=== PATIENT | male | born 1990 | race Hispanic/Latino ===

== ENCOUNTER 2023-11-13 00:47 | Inpatient (IN) | payer BC ==
[2023-11-13] MEDS ORDERED: Ondansetron ODT 4 MG TAB PO PRN (01:21)
[2023-11-13] MEDS ORDERED: Acetaminophen 650 MG Suppository PR PRN (01:21)
[2023-11-13] MEDS ORDERED: Ondansetron PF 4 MG/2 ML Vial IVP PRN (01:21)
[2023-11-13] MEDS: Sodium Chloride 0.9% 1,000 ML IV SCH (01:30)
[2023-11-13] MEDS ORDERED: Morphine 4 MG/ML VIAL SLOW IVP PRN (01:42)
[2023-11-13 01:44] LABS: #Basophils Less than 0.03 10x3/uL (0.0-0.2); %Basophils 0.1 % (0.0-1.0); %Eosinophils 0.8 % (0.0-10.0); %Lymphocytes 14.4 % (21.0-51.0); %Monocytes 6.5 % (0.0-10.0); %Neutrophils 77.7 % (42.0-75.0); Hematocrit 40.3 % (42.0-52.0); Hemoglobin 13.3 g/dL (14.0-18.0); Mean Corpuscular Hemoglobin 30.1 pg (27.0-31.0); Mean Corpuscular Volume 91.2 fL (78.0-98.0); Mean Platelet Volume 9.1 fL (7.4-10.4); Platelet Count 250 10x3/uL (130-400); RBC Distribution Width 12.7 % (11.5-14.5); Red Blood Cell (RBC) Count 4.42 mill/uL (4.70-6.10)
[2023-11-13 02:09] LABS: Lactic Acid 1.3 mmol/L (0.5-2.2)
[2023-11-13 02:12] LABS: Anion Gap 11 mmol/L (10-20); BUN (Urea Nitrogen) 9 mg/dL (8.9-20.6); Calc. Creatinine Clearance 0 mL/min (70-130); Calcium 8.7 mg/dL (7.8-10.44); Carbon Dioxide 21 mmol/L (22-29); Chloride 106 mmol/L (98-107); Estimated GFR 118; Glucose 96 mg/dL (70-105); Potassium 3.4 mmol/L (3.5-5.1); Sodium 135 mmol/L (136-145)
[2023-11-13 02:17] VITALS: BMI 33.3
[2023-11-13] MEDS: Ketorolac Tromethamine 30 MG (1 mL) VIAL IVP PRN (02:24)
[2023-11-13] MEDS: Clindamycin/D5W 600 MG in Premix 1 BAG IVPB SCH (03:19)
[2023-11-13] MEDS: Vancomycin (BATCH) 1.25 GM in Premix 1 BAG IVPB SCH (03:59)
[2023-11-13] MEDS: Cefepime 2 GM in Sodium Chloride 0.9% 100 ML IVPB SCH (05:20)
[2023-11-13] MEDS ORDERED: VANCOMYCIN IVPB PRN (07:15)
[2023-11-13 15:10] VITALS: BMI 33.3
[2023-11-13] MEDS: Potassium Chloride 20 MEQ TAB PO SCH (16:44)
[2023-11-13] MEDS: Acetaminophen 325 MG TAB PO PRN (19:52)
[2023-11-14 04:59] LABS: #Basophils Less than 0.03 10x3/uL (0.0-0.2); %Basophils 0.4 % (0.0-1.0); %Eosinophils 2.4 % (0.0-10.0); %Lymphocytes 24.2 % (21.0-51.0); %Monocytes 7.7 % (0.0-10.0); %Neutrophils 64.6 % (42.0-75.0); Hematocrit 39.1 % (42.0-52.0); Hemoglobin 12.9 g/dL (14.0-18.0); Mean Corpuscular Hemoglobin 29.7 pg (27.0-31.0); Mean Corpuscular Volume 90.1 fL (78.0-98.0); Mean Platelet Volume 9.5 fL (7.4-10.4); Platelet Count 229 10x3/uL (130-400); RBC Distribution Width 12.6 % (11.5-14.5); Red Blood Cell (RBC) Count 4.34 mill/uL (4.70-6.10)
[2023-11-14 05:21] LABS: Vancomycin, Random 15.9 ug/mL (See Comment)
[2023-11-14 05:23] LABS: Anion Gap 13 mmol/L (10-20); BUN (Urea Nitrogen) 9 mg/dL (8.9-20.6); Calc. Creatinine Clearance 171 mL/min (70-130); Calcium 8.7 mg/dL (7.8-10.44); Carbon Dioxide 21 mmol/L (22-29); Chloride 109 mmol/L (98-107); Estimated GFR 118; Glucose 125 mg/dL (70-105); Potassium 3.5 mmol/L (3.5-5.1); Sodium 139 mmol/L (136-145)
[2023-11-14 13:16] VITALS: BP 100/62; TEMP 97.6
[2023-11-14] MEDS ORDERED: Vancomycin (BATCH) 1.5 GM in Premix 1 BAG IVPB SCH (18:00)
== END 2023-11-14 13:30 | disposition home or self-care (01) | DRG 603 ==
LOC: T4-B 00:47
PROVIDERS: ADMIT Student in an Organized Health Care Education/Training Program; ATTEND Internal Medicine
DX: L03.115 Cellulitis of right lower limb (principal); E87.1 Hypo-osmolality and hyponatremia; F17.210 Nicotine dependence, cigarettes, uncomplicated; L02.415 Cutaneous abscess of right lower limb; B95.4 Other streptococcus as the cause of diseases classified elsewhere; Z90.49 Acquired absence of other specified parts of digestive tract; Z79.891 Long term (current) use of opiate analgesic; E87.6 Hypokalemia
CPT/HCPCS: 36415; 80048; 80053; 80202; 81001; 83036; 83605; 85025; 87040; 87070; 87077; 87205; 97139; 99284; J0692; J1885; J3370; J3490; J7030